=== PATIENT | male | born 1950 | race Caucasian/White ===

== ENCOUNTER → 2016-08-07 | Outpatient (CLI) | payer OTHER, MEDICARE ==
--- NOTE | 2016-08-07 18:42 | EKG REPORT ---
SEVERITY:- BORDERLINE ECG - SINUS RHYTHM PROBABLE LEFT ATRIAL ABNORMALITY LEFT AXIS DEVIATION : Confirmed by: Elana Carlton MD 07-Aug-2016 18:41:23
== END ==
LOC: RT 11:23
PROVIDERS: ATTEND Surgery
DX: Z01.810 Encounter for preprocedural cardiovascular examination (principal); D17.1 Benign lipomatous neoplasm of skin and subcutaneous tissue of trunk
CPT/HCPCS: 93005; 93010

== ENCOUNTER 2020-08-02 03:25 | Observation (INO) | payer OTHER, MEDICARE ==
--- NOTE | 2020-08-02 04:48 | RADIOLOGY REPORT (SQ) ---
EXAM DESCRIPTION: X-ray single view chest. CLINICAL HISTORY: 69 years Male, SOB COMPARISON: 11/06/2011 TECHNIQUE: Single portable x-ray view of the chest performed on 08/02/2020 at 4:10 AM FINDINGS: The lungs are well expanded. There is mild patchy airspace disease in the left inferior hemithorax which may be due to pneumonia. There is no evidence of a pneumothorax. The cardiac silhouette is normal in size and configuration. The mediastinal contours are normal. No acute osseous abnormality is identified. No acute soft tissue abnormalities are seen. Lines and tubes: None. Free air: None IMPRESSION: Mild patchy airspace disease in the inferior left hemithorax which may be due to pneumonia. Scarring and/or atelectasis could have a similar appearance.
[2020-08-02] MEDS ORDERED: NORMAL SALINE 500 ML IV ONE (05:00)
[2020-08-02] MEDS ORDERED: DEXAMETHASONE SOD PHOS INJ 10 MG/1 ML VIAL IV ONE (05:00)
[2020-08-02] MEDS ORDERED: IVERMECTIN 3 MG TABLET PO ONE (05:01)
--- NOTE | 2020-08-02 05:22 | ER Document Report ---
ED General - General TRAVEL OUTSIDE OF THE [place] IN LAST 30 DAYS: No <OCTAVIA DANIELS - Last Filed: 08/02/20 08:25> <LEE,ERICMICHAEL - Last Filed: 08/02/20 19:03> - General Chief Complaint: Shortness Of Breath Stated Complaint: BREATHING DIFFICULTY - HPI Notes: Chief Complaint: Shortness of breath, Covid Historian: History obtained from patient HPI: This is a 69-year-old male presents to the ER complaining of shortness of breath related to Covid x10 days. Patient says he was tested at [facility] around Saturday and was positive. He reports progressive shortness of breath and feels "cannot get enough air in". He also reports severe fatigue. He reports diffuse pleuritic chest pains, but denies hemoptysis leg swelling. Patient has initially had fevers but has not had a fever in the past few days. Patient was started on a steroid taper by his PCP and says he still has a few days of this but has not had any improvement in symptoms. No history of COPD, DM, PE/DVT, or CAD. Pt says he has a home pulse oximeter and this morning his sats were around 87%-89% at rest and thats when he decided to come to the ER. He says his pulse oximeter reads the last few days has been in the low 90's until this morning. Pt reports minimal po intake this week. ROS: Constitutional: fevers- resolved. fatigue/weakness HEENT: no GUTIERREZ, sore throat, or vision changes. CV: pleuritic chest pain Resp: SOB and cough GI: no abdominal pain, or n/v/d. : no dysuria, hematuria, or incont. MSK: no back pain, no joint swelling/redness. Skin: no rashes or itching. Neuro: no seizures, weakness, numbness, or confusion. Hematological: no ecchymosis or easy bleeding. Endocrine: no polyuria/polydipsia, no heat/cold intolerance. Psych: no SI/HI, AH/VH or memory loss. PMHx: Reviewed and agree as charted by RN. PSHx: Reviewed and agree as charted by RN. SOCHx: Reviewed and agree as charted by RN. FHX: No significant familial comorbid conditions directly related to patient complaint Current Medications: Reviewed and agree with the patient medications as charted by the RN. Allergies: Reviewed and agree with the listed allergies as charted by the RN Physical Exam: Vitals: Reviewed in chart as documented by RN. General: Alert, ill appearing. inc wob. Head: Normocephalic; atraumatic Eyes: PERRLA, Conjunctivae clear sclerae non-icteric bilat ENT: no soft palate swelling or uvular deviation Neck: trachea midline, no unilateral swelling/tenderness/lymphadenopathy CV: RRR, no M/R/G; symmetric distal pulses Resp: tachypneic, shallow resp's. slight difficulty speaking in full sentences. GI: abd soft and nondistended. NTTP. normal BS. no masses/HSM. no CVAT bilat MSK: FROM of all extremities. No midline CTL spine tenderness/deformity Skin: warm, moist, good turgor. no rash/lesions Neuro: Alert and oriented X 4. following CN 2-12 intact. no unilateral weakn ess/numbness Psych: No SI/HI or AH/VH. Medical Decision-Making: Medical Decision-making/Differential Diagnosis: Consider various etiologies including but not limited to covid, ARF, ARDS, hypox ia, hypovolemia, pneumonitis, CAP, viral pneumonia, bronchitis, PE, ACS, electrolyte abnormality, metabolic abnormality, dehydration, acid/base imbalance, strep pharyngitis, viral pharyngitis, other pharyngitis, sharon- tonsillar abscess (unlikely), retropharyngeal abscess (unlikely), Acute Suppurative Otitis media, otalgia, upper respiratory infection, viral syndrome, bronchitis, sinusitis, ect Plan- triage ordered basic labs, ecg, CXR, UA, BC X 2, trop. I added VBG, O2 via NC, decadron 10mg IV, Ivermectin 12mg PO, NS 500ml IV. pending results of labs/imaging. will continue to monitor. prn CT's/abx's if indicated. prn hospitalist consult for admission. I discussed treatment plan extensively w/ Dr Mejia and she agrees w/ the plan of care. This course of action was discussed with the patient and/or family. They were amenable to this, verbalized understanding, and were without further questions. (OCTAVIA DANIELS) - Related Data Allergies/Adverse Reactions: No Known Allergies Allergy (Verified 08/02/20 03:38) Past Medical History - Social History Smoking Status: Former Smoker Frequency of alcohol use: None Drug Abuse: None - Past Medical History Cardiac Medical History: Denies: Hx Heart Attack, Hx Hypertension Pulmonary Medical History: Denies: Hx Asthma Neurological Medical History: Denies: Hx Cerebrovascular Accident, Hx Seizures GI Medical History: Denies: Hx Hepatitis, Hx Hiatal Hernia, Hx Ulcer Musculoskeletal Medical History: Infectious Medical History: Denies: Hx Hepatitis Past Surgical History: Denies: Hx Open Heart Surgery, Hx Pacemaker - Immunizations Hx Diphtheria, Pertussis, Tetanus Vaccination: Yes <OCTAVIA DANIELS - Last Filed: 08/02/20 08:25> - Social History Frequency of alcohol use: None Drug Abuse: None Family History: Reviewed & Not Pertinent <USHA HOWARD - Last Filed: 08/02/20 19:03> Physical Exam - Vital signs Vitals: Temp Pulse Resp BP Pulse Ox 97.7 F 92 18 132/81 H 93 08/02/20 03:37 08/02/20 03:37 08/02/20 03:37 08/02/20 03:37 08/02/20 03:37 Course - Laboratory Results Result Diagrams: 08/02/20 06:10 08/02/20 06:10 Critical Laboratory Results Reviewed: No Critical Results - Radiology Results Critical Radiology Results Reviewed: No Critical Results - EKG Interpretation by Wi EKG shows normal: Sinus rhythm Rate: Normal Rhythm: NSR [place]/QRS: Left axis deviation, LAHB/LAFB Voltage: Increased voltage, Consistent with LVH P Waves: No: MAREK, LAE, Absent, AV Dissociation, Other Heart block present: No: 1st Degree, Mobitz 1, Mobitz 2, CHB (3rd degree block) When compared to previous EKG there are: No significant change <OCTAVIA DANIELS - Last Filed: 08/02/20 08:25> - Laboratory Results Result Diagrams: 08/02/20 06:10 08/02/20 06:10 Critical Laboratory Results Reviewed: No Critical Results - Radiology Results Critical Radiology Results Reviewed: No Critical Results <USHA HOWARD - Last Filed: 08/02/20 19:03> - Re-evaluation Re-evalutation: multifocal pneumonitits noted on CXR. ECG -nsr- LVH- LAD- unchanged from previous cbc- wnl UA- wnl VBG-pH7.42, C02/bicarb wnl. -0.5 base excess. trop- neg pending CMP, LDH, dimer, ferritin, CRP 08/02/20 07:27 Pt just recieved the decadron, ivermectin, IVF around 7am. discussed w/ Dr Mejia regarding pneumonitis on CXR- likely viral and not bacterial- no antibiotics indicated at this time. He reports no change in symptoms, though he seems to speak in sentences w/ less SOB than he did at arrival. pt was on O2 4L and sats have come up to 99%. reduced to 2L and pt remained around 97%. pt is now on 1 lpm NC and sats are 95%. Will continue to monitor pt to determine disposition. pt claims he was hypoxic around 87% at home this morning and was 91-92% when he arrived to the ER this morning. Pt is showing some signs of improvement but he needs to be monitored for a couple hours to see which direction he goes and whether he will need admission r/t to hypoxia or if he is able to be discharged home. I had an extensive discussion with pt and he is in agreement w/ the treatment plan. I will be transferring care of pt to the [facility] midlevel at 8am. Please see their documentation for remainder of pts ER course and disposition. 08/02/20 07:52 08/02/20 08:26 (OCTAVIA DANIELS) 08/02/20 08:30 Received report from TONI Daniels. He states he was advised against any IV antib iotics after consulting with Dr. Mejia, as patient's chest x-ray findings are more consistent with diagnosis of Covid pneumonitis. Santos Daniels reports he was advised additionally to give ivermectin. Advises monitoring patient for any desaturation for consideration of admission for any worsening of symptoms. 08/02/20 10:15 Patient ambulated in hallway with nurse, oxygen saturation dropped to 90 and patient had labored breathing at that time. 08/02/20 12:08 CTA reviewed, no pulmonary embolism identified. Patient with objective exertional dyspnea, attempted consultation with hospitalist for consideration for admission, no answer when lead hospitalist line called, spoke with snuff packing machine operator who is uncertain of who the lead hospitalist is. 08/02/20 12:35 Consulted with TONI Acharya to accept patient, patient will be accepted under Dr. Gonzalez services. (USHA HOWARD) - Vital Signs Vital signs: Temp Pulse Resp BP Pulse Ox 98.2 F 74 20 143/78 H 97 08/02/20 17:15 08/02/20 17:15 08/02/20 17:15 08/02/20 17:15 08/02/20 17:15 - Laboratory Results Laboratory Results Interpreted: 08/02/20 08/02/20 08/02/20 06:10 06:10 06:10 Lymph % (Auto) 10.3 L Seg Neutrophils % 82.8 H D-Dimer Sodium 134.2 L BUN 24 H Glucose 112 H Ferritin Direct Bilirubin 0.5 H AST 65 H ALT 64 H Lactate Dehydrogenase C-Reactive Protein Urine Protein 30 H Urine Urobilinogen 4.0 H 08/02/20 08/02/20 08/02/20 06:10 06:10 06:10 Lymph % (Auto) Seg Neutrophils % D-Dimer 0.86 H Sodium BUN Glucose Ferritin 798.00 H Direct Bilirubin AST ALT Lactate Dehydrogenase 360 H C-Reactive Protein 63.9 H Urine Protein Urine Urobilinogen - EKG Interpretation by Me Additional EKG results interpreted by me: 08/02/20 07:07 reviewed by ER physician- no STEMI (OCTAVIA DANIELS) Discharge <OCTAVIA DANIELS - Last Filed: 08/02/20 08:25> - Discharge Admitting Provider: Breana (Hospitalist) Unit Admitted: Telemetry <USHA HOWARD - Last Filed: 08/02/20 19:03> - Discharge Clinical Impression: Dyspnea due to COVID-19, Pneumonitis Condition: Fair Disposition: ADMITTED OBSERVATION
[2020-08-02 06:44] LABS: ABSOLUTE LYMPHOCYTES (AUTO) 0.9 10^3/uL (0.5-4.7); ABSOLUTE MONOCYTES (AUTO) 0.6 10^3/uL (0.1-1.4); ABSOLUTE NEUT (AUTO) 7.3 10^3/uL (1.7-8.2); BASOPHILS % (AUTO) 0.2 % (0-2); HEMATOCRIT 46.8 % (37.9-51.0); HEMOGLOBIN 16.1 g/dL (13.5-17.0); LYMPHOCYTES % (AUTO) 10.3 % (13-45); MEAN CORPUSCULAR HEMOGLOBIN 29.9 pg (27.0-33.4); MEAN CORPUSCULAR HGB CONC 34.5 g/dL (32.0-36.0); MEAN CORPUSCULAR VOLUME 87 fl (80-97); MONOCYTES % (AUTO) 6.7 % (3-13); PLATELET COUNT 226 10^3/uL (150-450); SEGMENTED NEUTROPHILS % (AUTO) 82.8 % (42-78); TOTAL CELLS COUNTED % (AUTO) 100 %; WHITE BLOOD COUNT 8.9 10^3/uL (4.0-10.5)
[2020-08-02 06:46] LABS: VENOUS BLOOD BASE EXCESS -0.5 mmol/L; VENOUS BLOOD HCO3 23.6 mmol/L (20-32); VENOUS BLOOD PCO2 37.2 mmHg (35-63); VENOUS BLOOD PH 7.42 (7.30-7.42)
[2020-08-02 07:12] LABS: ALBUMIN 3.6 g/dL (3.5-5.0); ALKALINE PHOSPHATASE 71 U/L (38-126); ANION GAP 8 (5-19); ASPARTATE AMINO TRANSFERASE 65 U/L (17-59); BILIRUBIN,DIRECT 0.5 mg/dL (0.0-0.4); BILIRUBIN,TOTAL 1.3 mg/dL (0.2-1.3); BLOOD UREA NITROGEN 24 mg/dL (7-20); CALCIUM 9.1 mg/dL (8.4-10.2); CARBON DIOXIDE 27 mmol/L (22-30); CHLORIDE 99 mmol/L (98-107); GLUCOSE 112 mg/dL (75-110); POTASSIUM 4.5 mmol/L (3.6-5.0); TOTAL PROTEIN 6.3 g/dL (6.3-8.2)
[2020-08-02 07:20] LABS: APPEARANCE,URINE SLIGHTLY-CLOUDY; BILIRUBIN,URINE NEGATIVE (NEGATIVE); GLUCOSE, URINE NEGATIVE (NEGATIVE); KETONES,URINE NEGATIVE (NEGATIVE); LEUKOCYTE ESTERASE,URINE NEGATIVE (NEGATIVE); NITRITE,URINE NEGATIVE (NEGATIVE); PROTEIN,URINE 30 mg/dL (NEGATIVE); URINE SPECIFIC GRAVITY 1.024
[2020-08-02 07:21] LABS: COLOR,URINE DARK YELLOW
--- NOTE | 2020-08-02 07:42 | EKG REPORT ---
SEVERITY:- ABNORMAL ECG - SINUS RHYTHM LEFT ANTERIOR FASCICULAR BLOCK LEFT VENTRICULAR HYPERTROPHY : Confirmed by: Oz Dennis MD 02-Aug-2020 07:42:02
[2020-08-02] MEDS ORDERED: ALBUTEROL SULFATE HFA (90 MCG/PUFF) 8 GM MDI IH ONE (10:14)
--- NOTE | 2020-08-02 11:26 | RADIOLOGY REPORT (SQ) ---
EXAM DESCRIPTION: CTA CHEST IMAGES COMPLETED DATE/TIME: 08/02/2020 11:01 am REASON FOR STUDY: cp, sob, elevated dimer, +covid COMPARISON: None. TECHNIQUE: CT scan of the chest performed using helical scanning technique with dynamic intravenous contrast injection. Images reviewed with lung, soft tissue and bone windows. Reconstructed coronal and sagittal MPR images reviewed. Additional 3 dimensional post-processing performed to develop Maximal Intensity Projection images (MA P). All images stored on PACS. All CT scanners at this facility use dose modulation, iterative reconstruction, and/or weight based d osing when appropriate to reduce radiation dose to as low as reasonably achievable (ALARA). [facility]: Dose Right [facility]: CareDose [facility]: Dose Right [facility]: Teradose 4D [facility]: Ready CONTRAST TYPE AND DOSE: contrast/concentration: Isovue 350.00 mmol/ml; Total Contrast Delivered: 63. 0 ml; Total Saline Delivered: 54.0 ml RENAL FUNCTION: GFR > 60. RADIATION DOSE: CT Rad equipment meets quality standard of care and radiation dose reduction techniq ues were employed. CTDIvol: 13.2 - 15.6 mGy. DLP: 561 mGy-cm. . LIMITATIONS: None. FINDINGS: LUNGS AND PLEURA: Patchy bilateral subsegmental primarily ground-glass opacities. No cons olidation. No evidence of cavitation. No effusions. AORTA AND GREAT VESSELS: No aneurysm. No dissection. HEART: No pericardial effusion. PULMONARY ARTERIES: No emboli visualized in the main pulmonary arteries or the segmental branches. HILAR AND MEDIASTINAL STRUCTURES: No identified masses or abnormal nodes. HARDWARE: None in the chest. UPPER ABDOMEN: No significant findings. Limited exam. THYROID AND OTHER SOFT TISSUES: No masses. No adenopathy. BONES: No acute or significant finding. 3D MIPS: Confirm above findings. OTHER: No other significant finding. IMPRESSION: 1. No PE. 2. Bilateral ground-glass opacities consistent with clinical history. COMMENT: Quality ID # [id number]: Final reports with documentation of one or more dose reduction techniques (e.g., Automated exposure control, adjustment of the mA and/or kV according to patient size, use of iterative reconstruction technique) TECHNICAL DOCUMENTATION: JOB ID: [id number] 2010 [employer]- All Rights Reserved Reading location - IP/workstation name: [email or web address]
[2020-08-02] MEDS ORDERED: ONDANSETRON 4 MG TAB.RAPDIS PO PRN (13:52)
[2020-08-02] MEDS ORDERED: ACETAMINOPHEN 325 MG TABLET PO PRN (13:52)
[2020-08-02] MEDS ORDERED: ALBUTEROL SULFATE 0.083% NEB 2.5 MG/3 ML AMPUL NEB PRN (13:52)
[2020-08-02] MEDS ORDERED: NORMAL SALINE 1000 ML 1,000 ML IV ONE (13:56)
[2020-08-02] MEDS ORDERED: GUAIFENESIN SYRP 200 MG/10 ML UDC PO PRN (14:03)
[2020-08-02] MEDS: CHOLECALCIFEROL (D3) 1,000 UNIT (25 MCG) TABLET PO SCH (16:16)
[2020-08-02] MEDS: ASCORBIC ACID 500 MG TABLET PO SCH ×2 (16:16→18:25)
[2020-08-02] MEDS: GUAIFENESIN 600 MG TABLET.SA PO SCH ×2 (16:16→21:20)
[2020-08-02] MEDS: ZINC SULFATE 220 MG CAPSULE PO SCH (16:17)
--- NOTE | 2020-08-02 20:24 | PDOC H&P ---
History of Present Illness Admission Date/PCP: 08/02/20 12:44 LUIS ALFREDO BHANDARI Patient complains of: Shortness of breath, cough, pneumonia History of Present Illness: JOSUE PEREZ is a 69 year old male with PMHx hypothyroidism and HLD who is who presented to the emergency department today with increased cough and dyspnea primarily on exertion. He tested positive for COVID-19 on 07/30 ago and initially felt stable but noted increasing symptom severity over past 2-3 day.s He reports a pulse ox at home of 87%. Evaluation in the emergency department revealed mild hypoxia (initially 88 on room air at rest, on my evaluation patient was 94% on room air at rest) Without tachypnea and otherwise stable vital signs. CBC was unremarkable, D-dimer mildly elevated to 0.86, VBG reassuring, and chemistry notable for elevated ferritin, LDH, CRP. UA unremarkable. Blood and sputum cultures pending. Chest xray consistent with COVID. CT Chest consistent with covid, without PE. Patient was referred to the hospital service for further evaluation and management of the above-stated complaints and finding Past Medical History Cardiac Medical History: Denies: Myocardial Infarction, Hypertension Pulmonary Medical History: Denies: Asthma Neurological Medical History: Denies: Seizures GI Medical History: Denies: Hepatitis, Hiatal Hernia Musculoskeltal Medical History: Psychiatric Medical History: Denies: Depression Hematology: Denies: Anemia Past Surgical History Past Surgical History: Denies: Pacemaker Social History Information Source: Patient Lives with: Spouse/Significant other Smoking Status: Former Smoker Electronic Cigarette use?: No Frequency of Alcohol Use: Rare Hx Recreational Drug Use: No Hx Prescription Drug Abuse: No - Advance Directive Resuscitation Status: Full Code Family History Family History: Hypertension Parental Family History Reviewed: Yes Children Family History Reviewed: Yes Sibling(s) Family History Reviewed.: Yes Medication/Allergy Home Medications: Albuterol Sulfate [Proair HFA Inhalation Aerosol 8.5 gm MDI] 2 puff IH Q4HP PRN 08/02/20 Aspirin [Ecotrin 81 mg EC Tablet] 81 mg PO DAILY 08/02/20 Cholecalciferol (Vitamin D3) [Vitamin D3] 400 unit PO DAILY 08/02/20 Levothyroxine Sodium [Levothyroxine] 150 mcg PO DAILY 08/02/20 Melatonin 5 mg PO QHS 08/02/20 Methylprednisolone [Medrol Dosepack (4 mg/Tab) 21 Tab/Dosepak] 4 mg PO ASDIR PRN 08/02/20 Multivitamin [Tab-A-Ryan (Multiple Vitamin) Tablet] 1 tab PO DAILY 08/02/20 [place]-3/Dha/Epa/Fish Oil [[place] 3 500 Softgel] 2 each PO BID 08/02/20 Simvastatin [Zocor 40 mg Tablet] 40 mg PO QHS 08/02/20 Ascorbic Acid [Vitamin C 500 mg Tablet] 500 mg PO BID tablet 08/03/20 Cholecalciferol (Vitamin D3) [Vitamin D3 1000 Unit Tablet] 2,000 unit PO DAILY tablet 08/03/20 Guaifenesin/Codeine Phos [Robitussin-AC Syrup 59 ml] 10 ml PO QIDP PRN #60 ml 08/03/20 Allergies/Adverse Reactions: No Known Allergies Allergy (Verified 08/02/20 03:38) Review of Systems Constitutional: ABSENT: chills, fatigue, fever(s), headache(s), night sweats Eyes: ABSENT: visual disturbances Nose, Mouth, and Throat: ABSENT: vertigo Cardiovascular: PRESENT: dyspnea on exertion. ABSENT: chest pain, orthropnea Respiratory: PRESENT: cough, dyspnea Gastrointestinal: ABSENT: abdominal pain, nausea, vomiting Genitourinary: ABSENT: difficulty urinating, dysuria Integumentary: ABSENT: diaphoresis Neurological: ABSENT: abnormal movements, abnormal speech, convulsions, dizziness Psychiatric: ABSENT: anxiety, depression Endocrine: ABSENT: cold intolerance, polyphagia, polyuria Hematologic/Lymphatic: ABSENT: lymphadenopathy Allergic/Immunologic: ABSENT: seasonal rhinorrhea Physical Exam Vital Signs: Temp Pulse Resp BP Pulse Ox 98.2 F 74 20 143/78 H 97 08/02/20 17:15 08/02/20 17:15 08/02/20 17:15 08/02/20 17:15 08/02/20 17:15 Intake & Output 08/01/20 08/02/20 08/03/20 06:59 06:59 06:59 Intake Total 500 Balance 500 Weight 86.8 kg General appearance: PRESENT: no acute distress, cooperative, well-developed, well-nourished Head exam: PRESENT: atraumatic, normocephalic Eye exam: PRESENT: EOMI. ABSENT: scleral icterus Mouth exam: PRESENT: dry mucosa Neck exam: PRESENT: full ROM. ABSENT: lymphadenopathy Respiratory exam: PRESENT: clear to auscultation glenny, rhonchi - minimal, symmetrical, unlabored. ABSENT: tachypnea, wheezes Cardiovascular exam: PRESENT: RRR, +S1, +S2. ABSENT: diastolic murmur, systolic murmur, tachycardia Pulses: PRESENT: normal radial pulses GI/Abdominal exam: PRESENT: soft. ABSENT: tenderness Rectal exam: PRESENT: deferred Musculoskeletal exam: PRESENT: ambulatory, full ROM Neurological exam: PRESENT: alert, awake, oriented to person, oriented to time, oriented to situation, CN II-XII grossly intact. ABSENT: motor sensory deficit Psychiatric exam: PRESENT: appropriate affect, normal mood Skin exam: PRESENT: dry, intact, warm Results Laboratory Results: 08/02/20 06:10 08/02/20 06:10 08/02/20 08/02/20 08/02/20 06:10 06:10 06:10 WBC 8.9 RBC 5.40 Hgb 16.1 Hct 46.8 MCV 87 MCH 29.9 MCHC 34.5 RDW 13.0 Plt Count 226 Seg Neutrophils % 82.8 H VBG pH 7.42 VBG pCO2 37.2 VBG HCO3 23.6 VBG Base Excess -0.5 Sodium 134.2 L Potassium 4.5 Chloride 99 Carbon Dioxide 27 Anion Gap 8 BUN 24 H Creatinine 0.99 Est GFR ( Amer) > 60 Glucose 112 H Calcium 9.1 Ferritin Total Bilirubin 1.3 AST 65 H Alkaline Phosphatase 71 C-Reactive Protein Total Protein 6.3 Albumin 3.6 Urine Color Urine Appearance Urine pH Ur Specific [place] Urine Protein Urine Glucose (UA) Urine Ketones Urine Blood Urine Nitrite Ur Leukocyte Esterase Urine WBC (Auto) Urine RBC (Auto) 08/02/20 08/02/20 08/02/20 06:10 06:10 06:10 WBC RBC Hgb Hct MCV MCH MCHC RDW Plt Count Seg Neutrophils % VBG pH VBG pCO2 VBG HCO3 VBG Base Excess Sodium Potassium Chloride Carbon Dioxide Anion Gap BUN Creatinine Est GFR ( Amer) Glucose Calcium Ferritin 798.00 H Total Bilirubin AST Alkaline Phosphatase C-Reactive Protein 63.9 H Total Protein Albumin Urine Color DARK YELLOW Urine Appearance SLIGHTLY-CLOUDY Urine pH 5.0 Ur Specific [place] 1.024 Urine Protein 30 H Urine Glucose (UA) NEGATIVE Urine Ketones NEGATIVE Urine Blood NEGATIVE Urine Nitrite NEGATIVE Ur Leukocyte Esterase NEGATIVE Urine WBC (Auto) 1 Urine RBC (Auto) 0 08/02/20 08/02/20 06:10 15:55 Creatine Kinase 31 L Troponin I < 0.012 Impressions: Chest X-Ray 08/02/20 03:43 IMPRESSION: Mild patchy airspace disease in the inferior left hemithorax which may be due to pneumonia. Scarring and/or atelectasis could have a similar appearance. Chest/Abdomen CTA 08/02/20 10:09 IMPRESSION: 1. No PE. 2. Bilateral ground-glass opacities consistent with clinical history. Assessment and Plan - Diagnosis (1) Dyspnea due to COVID-19 Is this a current diagnosis for this admission?: Yes Plan: Tested positive as an outpatient. D-dimer 1.09. Ferritin and CRP Continue prophylactic dose Lovenox; periodic D-dimer to evaluate for need for full dose anticoagulation. Provide supplemental oxygen as needed maintain saturations greater than 89%. Ivermectin 12 mg p.o. daily x2 doses. Methylprendisalone As needed nebulizer treatments. Zinc, vitamin D, vitamin C, and melatonin supplementation. Encourage pulmonary toilet. Isolation precautions. (2) Pneumonia due to COVID-19 virus Is this a current diagnosis for this admission?: Yes Plan: Likely secondary to COVID-19. Chest x-ray shows parenchymal opacities consistent with Covid. Chest CT consistent wit hCOIVD. Treatment as above. BC pending. (3) HLD (hyperlipidemia) Is this a current diagnosis for this admission?: Yes Plan: Home dose statin (4) Hypothyroidism Is this a current diagnosis for this admission?: Yes Plan: Home dose Levothyroxine. - Time Time Spent with patient: 35 or more minutes Medications reviewed and adjusted accordingly: Yes Anticipated Discharge Disposition: Home, Self Care Anticipated Discharge Timeframe: within 48 hours
[2020-08-02] MEDS: METHYLPREDNISOLONE INJ 40 MG/1 ML SDV IV SCH (21:20)
[2020-08-02] MEDS ORDERED: MELATONIN 5 MG TABLET PO SCH (22:00)
[2020-08-02] MEDS ORDERED: SIMVASTATIN 40 MG TABLET PO SCH (22:00)
[2020-08-03] MEDS ORDERED: PANTOPRAZOLE SODIUM 20 MG TABLET.DR PO SCH (06:00)
[2020-08-03] MEDS ORDERED: IVERMECTIN 3 MG TABLET PO ONE (06:00)
[2020-08-03] MEDS ORDERED: LEVOTHYROXINE SODIUM 0.15 MG TABLET PO SCH (06:00)
[2020-08-03] MEDS ORDERED: IVERMECTIN 3 MG TABLET ONE (06:48)
[2020-08-03] MEDS: ASCORBIC ACID 500 MG TABLET PO SCH (09:15)
[2020-08-03] MEDS: METHYLPREDNISOLONE INJ 40 MG/1 ML SDV IV SCH (09:15)
[2020-08-03] MEDS: ZINC SULFATE 220 MG CAPSULE PO SCH (09:15)
[2020-08-03] MEDS: CHOLECALCIFEROL (D3) 1,000 UNIT (25 MCG) TABLET PO SCH (09:16)
[2020-08-03] MEDS: GUAIFENESIN 600 MG TABLET.SA PO SCH (09:16)
[2020-08-03] MEDS ORDERED: ENOXAPARIN SODIUM INJ 30 MG/0.3 ML DISP.SYRIN SUBCUT SCH (10:00)
[2020-08-03] MEDS ORDERED: ASPIRIN 81 MG TABLET, ENT COATED PO SCH (10:00)
[2020-08-03] MEDS ORDERED: LEVOTHYROXINE SODIUM 150 MCG PO SCH (10:00)
[2020-08-03 10:23] LABS: HEMATOCRIT 41.3 % (37.9-51.0); HEMOGLOBIN 14.6 g/dL (13.5-17.0); MEAN CORPUSCULAR HEMOGLOBIN 30.9 pg (27.0-33.4); MEAN CORPUSCULAR HGB CONC 35.4 g/dL (32.0-36.0); MEAN CORPUSCULAR VOLUME 87 fl (80-97); PLATELET COUNT 234 10^3/uL (150-450); RED BLOOD COUNT 4.74 10^6/uL (4.35-5.55); WHITE BLOOD COUNT 9.6 10^3/uL (4.0-10.5)
[2020-08-03 10:43] LABS: BLOOD UREA NITROGEN 26 mg/dL (7-20); CALCIUM 8.9 mg/dL (8.4-10.2); CARBON DIOXIDE 28 mmol/L (22-30); GLUCOSE 166 mg/dL (75-110); POTASSIUM 3.9 mmol/L (3.6-5.0)
[2020-08-03 10:49] LABS: ANION GAP 5 (5-19); CHLORIDE 101 mmol/L (98-107)
[2020-08-03 16:05] VITALS: BP 142/74
--- NOTE | 2020-08-03 16:57 | PDOC DISCHARGE SUMMARY ---
Impression - Admit/DC Date/PCP Admission Date/Primary Care Provider: 08/02/20 12:44 LUIS ALFREDO BHANDARI Discharge Date: 08/03/20 - Discharge Diagnosis (1) Dyspnea due to COVID-19 Is this a current diagnosis for this admission?: Yes (2) Pneumonia due to COVID-19 virus Is this a current diagnosis for this admission?: Yes (3) HLD (hyperlipidemia) Is this a current diagnosis for this admission?: Yes (4) Hypothyroidism Is this a current diagnosis for this admission?: Yes - Additional Information Resuscitation Status: Full Code Discharge Diet: As Tolerated Discharge Activity: Activity As Tolerated Referrals: LUIS ALFREDO BHANDARI MD [Primary Care Provider] - Follow up as needed Prescriptions: Guaifenesin/Codeine Phos [Robitussin-AC Syrup 59 ml] 10 ml PO QIDP PRN #60 ml PRN Reason: Home Medications: Albuterol Sulfate [Proair HFA Inhalation Aerosol 8.5 gm MDI] 2 puff IH Q4HP PRN 08/02/20 Aspirin [Ecotrin 81 mg EC Tablet] 81 mg PO DAILY 08/02/20 Cholecalciferol (Vitamin D3) [Vitamin D3] 400 unit PO DAILY 08/02/20 Levothyroxine Sodium [Levothyroxine] 150 mcg PO DAILY 08/02/20 Melatonin 5 mg PO QHS 08/02/20 Methylprednisolone [Medrol Dosepack (4 mg/Tab) 21 Tab/Dosepak] 4 mg PO ASDIR PRN 08/02/20 Multivitamin [Tab-A-Ryan (Multiple Vitamin) Tablet] 1 tab PO DAILY 08/02/20 [place]-3/Dha/Epa/Fish Oil [[place] 3 500 Softgel] 2 each PO BID 08/02/20 Simvastatin [Zocor 40 mg Tablet] 40 mg PO QHS 08/02/20 Ascorbic Acid [Vitamin C 500 mg Tablet] 500 mg PO BID tablet 08/03/20 Cholecalciferol (Vitamin D3) [Vitamin D3 1000 Unit Tablet] 2,000 unit PO DAILY tablet 08/03/20 Guaifenesin/Codeine Phos [Robitussin-AC Syrup 59 ml] 10 ml PO QIDP PRN #60 ml 08/03/20 History of Present Illiness History of Present Illness: JOSUE PEREZ is a 69 year old male with PMHx hypothyroidism and HLD who is who presented to the emergency department today with increased cough and dyspnea primarily on exertion. He tested positive for COVID-19 on 07/30 ago and initially felt stable but noted increasing symptom severity over past 2-3 day.s He reports a pulse ox at home of 87%. Evaluation in the emergency department revealed mild hypoxia (initially 88 on room air at rest, on my evaluation patient was 94% on room air at rest) Without tachypnea and otherwise stable vital signs. CBC was unremarkable, D-dimer mildly elevated to 0.86, VBG reassuring, and chemistry notable for elevated ferritin, LDH, CRP. UA unremarkable. Blood and sputum cultures pending. Chest xray consistent with COVID. CT Chest consistent with covid, without PE. Patient was referred to the hospital service for further evaluation and management of the above-stated complaints and finding Hospital Course Hospital Course: Dyspnea due to COVID-19 / Pneumonia O2 sat >95% on room air. Reported improvement in symptoms overall. Feels better and would like to go home. Tested positive as an outpatient. With mildly elevated inflammatory markers. Chest x-ray shows parenchymal opacities consistent with Covid. Chest CT consistent with COIVD, without PE. BC pending NGTD. Ivermectin 12 mg p.o. daily x2 doses completed. Methylprendisalone x2 days completed. May continue albuterol inhaler. Zinc, vitamin D, vitamin C, and melatonin supplementation; may continue these at home. May utilize Robitussin-AC at home for cough Encourage pulmonary toilet. Last day of quarantine 08/08/2020, recommend follow up with PCP rikki 1 week dc from hospital. Physical Exam Vital Signs: Temp Pulse Resp BP Pulse Ox 97.3 F 69 17 142/74 H 94 08/03/20 16:00 08/03/20 16:00 08/03/20 16:00 08/03/20 16:00 08/03/20 16:00 Intake & Output 08/02/20 08/03/20 08/04/20 06:59 06:59 06:59 Intake Total 2182 500 Output Total 750 300 Balance 1432 200 Weight 86.8 kg 62.8 kg Additional comments: General appearance: PRESENT: no acute distress, cooperative, well-developed, well-nourished Eye exam: PRESENT: EOMI. ABSENT: scleral icterus Mouth exam: PRESENT: dry mucosa Respiratory exam: PRESENT: clear to auscultation glenny, symmetrical, unlabored. ABSENT: tachypnea, wheezes Cardiovascular exam: PRESENT: RRR, +S1, +S2. ABSENT: diastolic murmur, systolic murmur, tachycardia Musculoskeletal exam: PRESENT: ambulatory, full ROM Neurological exam: PRESENT: alert, awake, oriented to person, oriented to time, oriented to situation, CN II-XII grossly intact. ABSENT: motor sensory deficit Psychiatric exam: PRESENT: appropriate affect, normal mood Skin exam: PRESENT: dry, intact, warm Results Laboratory Results: WBC 9.6 10^3/uL (4.0-10.5) 08/03/20 09:52 RBC 4.74 10^6/uL (4.35-5.55) 08/03/20 09:52 Hgb 14.6 g/dL (13.5-17.0) 08/03/20 09:52 Hct 41.3 % (37.9-51.0) 08/03/20 09:52 MCV 87 fl (80-97) 08/03/20 09:52 MCH 30.9 pg (27.0-33.4) 08/03/20 09:52 MCHC 35.4 g/dL (32.0-36.0) 08/03/20 09:52 RDW 13.0 % (11.5-14.0) 08/03/20 09:52 Plt Count 234 10^3/uL (150-450) 08/03/20 09:52 Lymph % (Auto) 10.3 % (13-45) L 08/02/20 06:10 [place] % (Auto) 6.7 % (3-13) 08/02/20 06:10 Eos % (Auto) 0.0 % (0-6) 08/02/20 06:10 Baso % (Auto) 0.2 % (0-2) 08/02/20 06:10 Absolute Neuts (auto) 7.3 10^3/uL (1.7-8.2) 08/02/20 06:10 Absolute Lymphs (auto) 0.9 10^3/uL (0.5-4.7) 08/02/20 06:10 Absolute Monos (auto) 0.6 10^3/uL (0.1-1.4) 08/02/20 06:10 Absolute Eos (auto) 0.0 10^3/uL (0.0-0.6) 08/02/20 06:10 Absolute Basos (auto) 0.0 10^3/uL (0.0-0.2) 08/02/20 06:10 Seg Neutrophils % 82.8 % (42-78) H 08/02/20 06:10 D-Dimer 0.86 ug/mL (0.00-0.50) H 08/02/20 06:10 VBG pH 7.42 (7.30-7.42) 08/02/20 06:10 VBG pCO2 37.2 mmHg (35-63) 08/02/20 06:10 VBG HCO3 23.6 mmol/L (20-32) 08/02/20 06:10 VBG Base Excess -0.5 mmol/L 08/02/20 06:10 Sodium 134.1 mmol/L (137-145) L 08/03/20 09:52 Potassium 3.9 mmol/L (3.6-5.0) 08/03/20 09:52 Chloride 101 mmol/L (98-107) 08/03/20 09:52 Carbon Dioxide 28 mmol/L (22-30) 08/03/20 09:52 Anion Gap 5 (5-19) 08/03/20 09:52 BUN 26 mg/dL (7-20) H 08/03/20 09:52 Creatinine 0.92 mg/dL (0.52-1.25) 08/03/20 09:52 Est GFR ( Amer) > 60 (>60) 08/03/20 09:52 Est GFR (MDRD) Non-Af > 60 (>60) 08/03/20 09:52 Glucose 166 mg/dL (75-110) H 08/03/20 09:52 Calcium 8.9 mg/dL (8.4-10.2) 08/03/20 09:52 Ferritin 798.00 ng/mL (17.9-464.0) H 08/02/20 06:10 Total Bilirubin 1.3 mg/dL (0.2-1.3) 08/02/20 06:10 Direct Bilirubin 0.5 mg/dL (0.0-0.4) H 08/02/20 06:10 Neonat Total Bilirubin Not Reportable 08/02/20 06:10 Neonat Direct Bilirubin Not Reportable 08/02/20 06:10 Neonat Indirect Bili Not Reportable 08/02/20 06:10 AST 65 U/L (17-59) H 08/02/20 06:10 ALT 64 U/L (<50) H 08/02/20 06:10 Alkaline Phosphatase 71 U/L (38-126) 08/02/20 06:10 Lactate Dehydrogenase 360 U/L (120-246) H 08/02/20 06:10 Creatine Kinase 31 U/L (55-170) L 08/02/20 15:55 Troponin I < 0.012 ng/mL 08/02/20 06:10 C-Reactive Protein 63.9 mg/L (<10.0) H 08/02/20 06:10 Total Protein 6.3 g/dL (6.3-8.2) 08/02/20 06:10 Albumin 3.6 g/dL (3.5-5.0) 08/02/20 06:10 Urine Color DARK YELLOW 08/02/20 06:10 Urine Appearance SLIGHTLY-CLOUDY 08/02/20 06:10 Urine pH 5.0 (5.0-9.0) 08/02/20 06:10 Ur Specific [place] 1.024 08/02/20 06:10 Urine Protein 30 mg/dL (NEGATIVE) H 08/02/20 06:10 Urine Glucose (UA) NEGATIVE mg/dL (NEGATIVE) 08/02/20 06:10 Urine Ketones NEGATIVE mg/dL (NEGATIVE) 08/02/20 06:10 Urine Blood NEGATIVE (NEGATIVE) 08/02/20 06:10 Urine Nitrite NEGATIVE (NEGATIVE) 08/02/20 06:10 Urine Bilirubin NEGATIVE (NEGATIVE) 08/02/20 06:10 Urine Urobilinogen 4.0 mg/dL (<2.0) H 08/02/20 06:10 Ur Leukocyte Esterase NEGATIVE (NEGATIVE) 08/02/20 06:10 Urine WBC (Auto) 1 /HPF 08/02/20 06:10 Urine RBC (Auto) 0 /HPF 08/02/20 06:10 U Hyaline Cast (Auto) 1 /LPF 08/02/20 06:10 Urine Mucus (Auto) MOD /LPF 08/02/20 06:10 Urine Ascorbic Acid NEGATIVE (NEGATIVE) 08/02/20 06:10 08/02/20 06:10 Troponin I < 0.012 Impressions: Chest X-Ray 08/02/20 03:43 IMPRESSION: Mild patchy airspace disease in the inferior left hemithorax which may be due to pneumonia. Scarring and/or atelectasis could have a similar appearance. Chest/Abdomen CTA 08/02/20 10:09 IMPRESSION: 1. No PE. 2. Bilateral ground-glass opacities consistent with clinical history. Plan Time Spent: Greater than 30 Minutes Stroke Is this a Stroke Patient?: No Acute Heart Failure Is this a Heart Failure Patient?: No
== END 2020-08-03 16:18 | disposition home or self-care (01) ==
LOC: ER 03:25 → EH 12:44 → 3N 14:39 → 4S 08-03 13:03
PROVIDERS: ADMIT Internal Medicine; ATTEND Physician Assistant
DX: U07.1 COVID-19 (principal); J12.82 Pneumonia due to coronavirus disease 2019; R06.09 Other forms of dyspnea; R09.02 Hypoxemia; E78.5 Hyperlipidemia, unspecified; E03.9 Hypothyroidism, unspecified; Z79.899 Other long term (current) drug therapy; Z79.82 Long term (current) use of aspirin; Z87.891 Personal history of nicotine dependence
CPT/HCPCS: 99285; 96361; 96374; 36415 ×2; 87040; 82550; 82728; 83615; 85025; 85027; 86140; 80048; 80053; 81001; 84484; 85379; 82803; 71045; 71275; 93005; 93010; G0378 ×3; J2920 ×2; J3490 ×7; J1650; J7030; J7040; J1100

== ENCOUNTER 2020-08-04 02:43 | Emergency (ER) | payer OTHER, MEDICARE ==
--- OUTSIDE RECORDS SUMMARY | 2020-08-04 03:50 | XMS REPORT ---
:1950 [facility] Address [address] [address] Care Team Providers Name Role Phone BAKRAI GOVEA Attending Clinician Unavailable Allergies, Adverse Reactions, Alerts This patient has no known allergies or adverse reactions. Medications This patient has no known medications. Problems This patient has no known problems. Procedures This patient has no known procedures. Results Test Description Test Time Test Comments Text Results Atomic Results Result Comments SARS-CoV-2 RNA Resp Ql RAJAN+probe 2020-07-30 00:00:00 Test Item Value Reference Range Comments SARS-CoV-2 RNA Resp Ql RAJAN+probe Detected DC Covid Public [facility] Case ID: (test code = [id number]) [id number] Encounters Start End Encounter Admission Attending Care Care Encounter Date/Time Date/Time Type Type Clinicians Facility Department ID 2016-08-20 2016-08-20 Outpatient [facility] [id number] 14:41:00 14:41:00 BAKARI 94 Payers Payer Name Policy Type Policy Number Effective Date Expiration D ate Social History This patient has no known social history. Vital Signs This patient has no known vital signs.
--- NOTE | 2020-08-04 04:41 | ER Document Report ---
ED General - General TRAVEL OUTSIDE OF THE [place] IN LAST 30 DAYS: No - Related Data Home Medications: See discharge summary <LANDRY RENEE - Last Filed: 08/04/20 05:57> <KOURTNEY HURTADO - Last Filed: 08/04/20 06:56> - General Chief Complaint: Shortness Of Breath Stated Complaint: SHORTNESS OF BREATH Time Seen by Provider: 08/04/20 03:33 Primary Care Provider: LUIS ALFREDO BHANDARI MD [Primary Care Provider] - Follow up as needed - HPI Notes: Patient is a 69-year-old male with known Covid presents emergency department for evaluation. He was actually just discharged from hospital today. He was init ially found to be mildly hypoxic, was admitted to the hospital. He was sent home after a negative CTA. He has a pulse oximeter. He was told to come in if his pulse ox was below 90. He was sleeping today and he had a pulse ox of 89, so he presents to the ER for further evaluation. He has had ongoing fevers. He has had no nausea or vomiting. He never had any anosmia. He has no diarrhea. He continues to have coughing and shortness of breath. (LANDRY RENEE) - Related Data Allergies/Adverse Reactions: No Known Allergies Allergy (Verified 08/02/20 03:38) Past Medical History - General Information source: Patient - Social History Smoking Status: Former Smoker Family History: Hypertension - Past Medical History Cardiac Medical History: Denies: Hx Heart Attack, Hx Hypertension Pulmonary Medical History: Denies: Hx Asthma Neurological Medical History: Denies: Hx Cerebrovascular Accident, Hx Seizures GI Medical History: Denies: Hx Hepatitis, Hx Hiatal Hernia, Hx Ulcer Musculoskeletal Medical History: Psychiatric Medical History: Denies: Hx Depression Infectious Medical History: Denies: Hx Hepatitis Past Surgical History: Denies: Hx Open Heart Surgery, Hx Pacemaker - Immunizations Hx Diphtheria, Pertussis, Tetanus Vaccination: Yes <LANDRY RENEE - Last Filed: 08/04/20 05:57> Review of Systems - Review of Systems Constitutional: See HPI EENT: No symptoms reported Cardiovascular: No symptoms reported Respiratory: See HPI Gastrointestinal: No symptoms reported Genitourinary: No symptoms reported Musculoskeletal: No symptoms reported Skin: No symptoms reported Neurological/Psychological: No symptoms reported <LANDRY RENEE - Last Filed: 08/04/20 05:57> Physical Exam <LANDRY RENEE - Last Filed: 08/04/20 05:57> - Vital signs Vitals: Temp Pulse Resp BP Pulse Ox 99.3 F 103 H 18 134/79 H 92 08/04/20 02:50 08/04/20 02:50 08/04/20 02:50 08/04/20 02:50 08/04/20 02:50 - Notes Notes: Vital signs reviewed, please refer to chart. Head is normocephalic, atraumatic. Pupils equal round, reactive to light. Neck is supple without meningismus. Heart is regular rate and rhythm. Lungs are clear to auscultation bilaterally. Abdomen is soft, nontender, normoactive bowel sounds throughout. Extremities without cyanosis, clubbing. Posterior calves are nontender. Peripheral pulses are equal. Skin is warm and dry. Patient is awake, alert, neurological exam is nonfocal. (LANDRY RENEE) Course - Laboratory Results Result Diagrams: 08/04/20 04:41 08/04/20 04:41 <LANDRY RENEE - Last Filed: 08/04/20 05:57> - Laboratory Results Result Diagrams: 08/04/20 04:41 08/04/20 04:41 Critical Laboratory Results Reviewed: No Critical Results - Radiology Results Critical Radiology Results Reviewed: No Critical Results <KOURTNEY HURTADO - Last Filed: 08/04/20 06:56> - Re-evaluation Re-evalutation: 08/04/20 04:42 Patient presents emergency department for evaluation. He was placed on a ar rdiac monitor. Laboratory investigations are ordered, as well as x-ray. At this time the patient is oxygenating 92 to 94% on room air. He has a normal respiratory rate. His vitals are unremarkable. We will repeat some basic blood work. The patient had a CT angiogram, was actually just discharged from the hospital. I suspect he had a mild drop in his saturations secondary to sleeping. He is currently stable, we will continue to monitor. 08/04/20 05:46 Still awaiting labs. Patient's chest x-ray shows continued Covid-like infiltrates. He remains 93 to 94%, heart rate in the 70s. He is already on steroids. He already received ivermectin. My suspicion is that this patient's labs will be unremarkable and he will likely be able to be discharged home with close follow-up. 08/04/20 05:47 Patient did become febrile here. Please note Tylenol and a small amount of IV fluids as ordered. (LANDRY RENEE) 08/04/20 06:52 Patient resting comfortably not showing signs of distress sats 94% while asleep was awake and talking with the mask on patient saturation went up to 96%. Patient not having any discomfort in his chest or respiratory at this time. (KOURTNEY HURTADO) - Vital Signs Vital signs: Temp Pulse Resp BP Pulse Ox 100.7 F H 103 H 25 H 118/71 93 08/04/20 04:57 08/04/20 02:50 08/04/20 06:01 08/04/20 06:00 08/04/20 06:01 08/04/20 06:51 Vital signs stable. Exception is a mild temp elevation 100.7 respiratory rate 25 pulse ox 93% on my exam patient is resting comfortably not showing any signs of distress. (KOURTNEY HURTADO) - Laboratory Results Laboratory Results Interpreted: 08/04/20 08/04/20 04:41 04:41 Lymph % (Auto) 10.8 L Seg Neutrophils % 81.6 H Sodium 135.1 L Carbon Dioxide 31 H Anion Gap 4 L BUN 21 H AST 112 H ALT 187 H Total Protein 5.9 L Albumin 3.2 L 08/04/20 06:53 No critical laboratories at this time patient does have an elevation in his LFTs with AST and ALT 2.5 times normal. Patient has known Covid 19+ with pneumonia. Patient recently hospitalized and return to the emergency department less than 24 hours from his discharge. Patient states he feels better at this time and is ready to go home. Dr. Estrada had patient with discharge plans just pending labs at the time she patient was transferred to [place] (KOURTNEY HURTADO) - Radiology Results Radiology Results Interpreted: 08/04/20 06:55 Chest X-Ray 08/04/20 04:06 IMPRESSION: Patchy interstitial and alveolar opacities bilaterally most consistent with multifocal pneumonia. Superimposed scarring and/or atelectasis are not excluded. Patient has known COVID-19 pneumonia. X-ray shows interstitial alveolar opacities bilateral. (KOURTNEY HURTADO) Discharge <LANDRY RENEE - Last Filed: 08/04/20 05:57> <KOURTNEY HURTADO - Last Filed: 08/04/20 06:56> - Discharge Clinical Impression: Pneumonia due to COVID-19 virus Condition: Stable Disposition: HOME, SELF-CARE Instructions: COVID-19 Guidance for Persons Under Investigation, Fever ([facility]), Pneumonia ([facility]), Viral Syndrome ([facility]) Additional Instructions: Please continue medications at home as prescribed. You continue to have signs of Covid pneumonia, but you are oxygenating at a satisfactory level. Please follow-up closely with your primary care provider. Follow same discharge instructions as given from the hospital yesterday. If you develop worsening or new concerning symptoms of any sort, please return immediately to the emergency department for evaluation. Referrals: LUIS ALFREDO BHANDARI MD [Primary Care Provider] - Follow up as needed
--- NOTE | 2020-08-04 05:20 | RADIOLOGY REPORT (SQ) ---
EXAM DESCRIPTION: X-ray single view chest. CLINICAL HISTORY: 69 years Male, known COVID, hypoxia COMPARISON: Chest x-ray and chest CT performed on 08/02/2020 TECHNIQUE: Single portable x-ray view of the chest performed on 08/04/2020 at 4:36 AM FINDINGS: The lungs are well-expanded. There are patchy interstitial and alveolar opacities bilaterally most consistent with multifocal pneumonia. Superimposed scarring and/or atelectasis are not excluded. There is no evidence of a pneumothorax. The cardiac silhouette is normal in size and configuration. The mediastinal contours are normal. No acute osseous abnormality is identified. No acute soft tissue abnormalities are seen. Lines and tubes: None. Free air: None IMPRESSION: Patchy interstitial and alveolar opacities bilaterally most consistent with multifocal pneumonia. Superimposed scarring and/or atelectasis are not excluded.
[2020-08-04] MEDS ORDERED: NORMAL SALINE 500 ML IV ONE (05:47)
[2020-08-04] MEDS ORDERED: ACETAMINOPHEN 325 MG TABLET PO ONE (05:47)
[2020-08-04 05:54] LABS: ABSOLUTE MONOCYTES (AUTO) 0.7 10^3/uL (0.1-1.4); ABSOLUTE NEUT (AUTO) 7.6 10^3/uL (1.7-8.2); BASOPHILS % (AUTO) 0.1 % (0-2); EOSINOPHILS % (AUTO) 0.1 % (0-6); HEMATOCRIT 43.7 % (37.9-51.0); HEMOGLOBIN 15.1 g/dL (13.5-17.0); LYMPHOCYTES % (AUTO) 10.8 % (13-45); MEAN CORPUSCULAR HGB CONC 34.6 g/dL (32.0-36.0); MEAN CORPUSCULAR VOLUME 87 fl (80-97); MONOCYTES % (AUTO) 7.4 % (3-13); PLATELET COUNT 281 10^3/uL (150-450); RED BLOOD COUNT 5.02 10^6/uL (4.35-5.55); RED CELL DISTRIBUTION WIDTH 13.2 % (11.5-14.0); SEGMENTED NEUTROPHILS % (AUTO) 81.6 % (42-78); TOTAL CELLS COUNTED % (AUTO) 100 %; WHITE BLOOD COUNT 9.4 10^3/uL (4.0-10.5)
[2020-08-04 06:10] LABS: ALBUMIN 3.2 g/dL (3.5-5.0); ALKALINE PHOSPHATASE 79 U/L (38-126); ASPARTATE AMINO TRANSFERASE 112 U/L (17-59); BILIRUBIN,DIRECT 0.2 mg/dL (0.0-0.4); BILIRUBIN,TOTAL 0.9 mg/dL (0.2-1.3); BLOOD UREA NITROGEN 21 mg/dL (7-20); CALCIUM 8.7 mg/dL (8.4-10.2); CARBON DIOXIDE 31 mmol/L (22-30); CHLORIDE 100 mmol/L (98-107); GLUCOSE 91 mg/dL (75-110); POTASSIUM 4.2 mmol/L (3.6-5.0); TOTAL PROTEIN 5.9 g/dL (6.3-8.2)
[2020-08-04 06:33] LABS: ANION GAP 4 (5-19)
[2020-08-04 06:53] VITALS: BP 119/68
== END 2020-08-04 07:15 | disposition home or self-care (01) ==
LOC: ER 02:43
DX: U07.1 COVID-19 (principal); J12.89 Other viral pneumonia; R06.02 Shortness of breath; R09.02 Hypoxemia; R50.9 Fever, unspecified; Z87.891 Personal history of nicotine dependence
CPT/HCPCS: 99284; 36415; 85025; 80053; 84484; 71045; J7040